=== PATIENT | female | born 1995 | race Caucasian/White ===

== ENCOUNTER 2020-04-20 18:14 | Emergency (ER) | payer SELFPAY ==
[~2020-04-20] VITALS: Ht 167.6 cm; Wt 109.0 kg
[2020-04-20 19:55] VITALS: BP 159/89
--- NOTE | 2020-04-20 19:55 | RAD ---
Three-view right knee HISTORY: Wound AP lateral oblique views There is moderate degenerative changes the medial compartment with marginal spurring. There is no lytic destructive changes. There is no radiopaque foreign body. There is soft tissue defect anterior to the patellar tendon. IMPRESSION: No acute bony normality. Electronically signed by: Ollie Marley III, MD (04/20/2020 7:52 PM) [facility]
[2020-04-20] MEDS ORDERED: CEPH500T PO (20:32)
[2020-04-20] MEDS ORDERED: SULF1TAB23 PO (20:32)
--- NOTE | 2020-04-20 20:32 | PHYS DOC ---
Past Medical History Past Medical History: No Pertinent History (WALE KAHN APRN) Past Surgical History: No Surgical History (WALE KAHN APRN) Smoking Status: Current Every Day Smoker Alcohol Use: None (WALE KAHN APRN) General Adult EDM: Chief Complaint: LACERATION/AVULSION HPI: HPI: Patient is a 24 year old female patient presenting to the ED today with right knee laceration that occurred 1 week ago after she fell on her knee. Patient reports the laceration site is draining yellow material. Denies any fever. (WALE KAHN APRN) Review of Systems: Review of Systems: Constitutional: Denies fever or chills. [] Musculoskeletal: Denies back pain or joint pain. [] Integument: Reports right knee laceration Neurologic: Denies headache, focal weakness or sensory changes. [] Psychiatric: Denies depression or anxiety. [] (WALE KAHN APRN) Heart Score: Risk Factors: Risk Factors: DM, Current or recent (<one month) smoker, HTN, HLP, family history of CAD, obesity. Risk Scores: Score 0 - 3: 2.5% MACE over next 6 weeks - Discharge Home Score 4 - 6: 20.3% MACE over next 6 weeks - Admit for Clinical Observation Score 7 - 10: 72.7% MACE over next 6 weeks - Early Invasive Strategies (WALE KAHN APRN) Allergies: Allergies: Allergies Coded Allergies Type Severity Reaction Last Updated Verified nickel Allergy Unknown 04/20/20 Yes (WALE KAHN APRN) Physical Exam: PE: Constitutional: Well developed, well nourished, no acute distress, non-toxic ap pearance. [] Skin: Right knee with no obvious deformity. Anterior aspect of the right knee with an open wound roughly 4 x 1 cm. There is crusting around the wound with trace amount of cellulitis. There is no obvious drainage in the ED. The wound feels warm. +2 right pedal pulse. Full range of motion to the right lower extremity. Back: No tenderness, no CVA tenderness. [] Extremities: See skin Neurologic: Alert and oriented X 3, normal motor function, normal sensory function, no focal deficits noted. [] Psychologic: Affect normal, judgement normal, mood normal. [] (AWLE KAHN APRN) Current Patient Data: Vital Signs: Vital Signs Date Time Temp Pulse Resp B/P (MAP) Pulse Ox O2 Delivery O2 Flow Rate FiO2 04/20/20 19:03 97.9 104 20 123/84 (97) 96 97.9 (WALE KAHN APRN) EKG: EKG: [] (WALE KAHN APRN) Radiology/Procedures: Radiology/Procedures: []PROCEDURE: KNEE RIGHT 3V Three-view right knee HISTORY: Wound AP lateral oblique views There is moderate degenerative changes the medial compartment with marginal spurring. There is no lytic destructive changes. There is no radiopaque foreign body. There is soft tissue defect anterior to the patellar tendon. IMPRESSION: No acute bony normality. Electronically signed by: Jalen Marley III, MD (04/20/2020 7:52 PM) [facility] DICTATED and SIGNED BY: JALEN MARLEY III, MD DATE: 04/20/20 [id number] (WALE KAHN APRN) Course & Med Decision Making: Course & Med Decision Making Pertinent Labs and Imaging studies reviewed. (See chart for details) This is a 24-year-old female patient presented to the ED today with right knee laceration that occurred a week ago after she fell on her knee. Right knee x- rays interpreted by radiologist were negative for any acute findings. Tetanus is up-to-date. Laceration site appears infected. Will be discharged on cephalexin and Bactrim. Provided wound care instructions and return precautions. (WALE KAHN APRN) Dragon Disclaimer: Dragon Disclaimer: This electronic medical record was generated, in whole or in part, using a voice recognition dictation system. (WALE KAHN APRN) Departure Departure Impression: Primary Impression: Cellulitis of knee, right Additional Impression: Fall from standing Qualified Codes: W19.XXXA - Unspecified fall, initial encounter Disposition: 01 DC HOME SELF CARE/HOMELESS Condition: STABLE Referrals: NO PCP (PCP) Follow-up with your doctor in 1 to 2 weeks Patient Instructions: Cellulitis, [id number] Additional Instructions: You have infection on your right knee. Take the prescribed antibiotics as ordered until completed. Please wash your knee once or twice a day with regular soap and water. Keep it covered if draining. Scripts Sulfamethoxazole/Trimethoprim (BACTRIM 400-80 MG TABLET) 1 Each Tablet 1 TAB PO BID for 10 Days, #20 TAB 0 Refills Prov: WALE KAHN APRN 04/20/20 Cephalexin (CEPHALEXIN) 500 Mg Tablet 1 TAB PO TID, #30 TAB Prov: WALE KAHN APRN 04/20/20 Attending Signature Attending Signature I have reviewed the PA/[employer]IR[employer] INSTALLER's note and plan of care. I was available for consultation as needed during the patient's visit in the emergency department. I agree with the clinical impression, plan, and disposition. (NUVIA REID DO) WALE KAHN APRN Apr 20, 2020 20:32 NUVIA REID DO Apr 21, 2020 00:08
== END 2020-04-20 20:40 | disposition home or self-care (01) ==
LOC: ER 18:14
DX: G89.11 Acute pain due to trauma (principal); L03.115 Cellulitis of right lower limb; F17.200 Nicotine dependence, unspecified, uncomplicated; Z88.8 Allergy status to other drugs, medicaments and biological substances; W18.39XA Other fall on same level, initial encounter; Y93.89 Activity, other specified; Y92.89 Other specified places as the place of occurrence of the external cause; Y99.8 Other external cause status
CPT/HCPCS: 73562; 99283